=== PATIENT | female | born 1955 ===

== ENCOUNTER → 2018-02-26 20:56 | Outpatient (REF) | payer OTHER, SELFPAY ==
[2018-02-26 21:29] LABS: Hemoglobin A1C% w Est Avg Glu 5.7 % (4.0-6.0)
[2018-02-26 21:37] LABS: Erythrocyte Sedimentation Rate 11 MM/HR (0-20)
[2018-02-26 22:18] LABS: Thyroid Stimulating Hormone 1.37 uIU/mL (0.47-4.68)
[2018-02-26 22:33] LABS: Folate 15.3 ng/mL (2.76-20.0); Vitamin B12 567 pg/mL (239-931)
[2018-03-01 20:33] LABS: ANA Screen, IFA Negative (Negative)
[2018-03-01 20:58] LABS: RPR Screen Nonreactive (Nonreactive)
[2018-03-02 14:52] LABS: Lyme SCREEN w/ Reflex IgG IgM < 0.90 (< 0.90)
[2018-03-02 22:19] LABS: Albumin 4.1 g/dL (3.8-4.8); Alpha 1 Globulin 0.3 g/dL (0.2-0.3); Alpha 2 Globulin 0.7 g/dL (0.5-0.9); Beta 1 Globulin 0.4 g/dL (0.4-0.6); Protein, Total 6.8 g/dL (6.1-8.1)
== END ==
LOC: LAB 20:56
PROVIDERS: Visit Provider Naturopath
DX: F07.81 Postconcussional syndrome (principal); R41.844 Frontal lobe and executive function deficit; R41.840 Attention and concentration deficit
CPT/HCPCS: 36415; 82607; 82746; 83036; 83090; 83519; 84155; 84165; 84443; 85651; 86038; 86255; 86592; 86618

== ENCOUNTER → 2018-03-02 21:22 | Outpatient (REF) | payer OTHER, SELFPAY ==
[2018-03-06 17:35] LABS: Albumin 100 %; Protein, Total, 24 hr urine 116 mg/24 h (<150); Protein/ Creatinine Ratio 94 mg/g creat (<115); Total Volume 2900 mL
== END ==
LOC: LAB 21:22
PROVIDERS: Visit Provider Psychiatry & Neurology Neurology with Special Qualifications in Child Neurology
DX: G62.9 Polyneuropathy, unspecified (principal); R53.1 Weakness
CPT/HCPCS: 84156; 84166

== ENCOUNTER → 2018-03-03 21:17 | Outpatient (REF) | payer OTHER, SELFPAY ==
[2018-03-03 21:58] LABS: C-Reactive Protein Quant < 0.5 mg/dL (<1.0)
[2018-03-03 22:13] LABS: Cortisol Random 10.4 ug/dL
[2018-03-06 13:56] LABS: Dehydroepiandrosterone Sulfate 109 mcg/dL (12-133)
[2018-03-06 14:50] LABS: Progesterone < 0.5 ng/mL
[2018-03-06 15:47] LABS: Estradiol 17 pg/mL
[2018-03-06 18:38] LABS: Adrenocorticotropic Hormone 23 pg/mL (6-50)
[2018-03-08 09:32] LABS: Z- Score (Female) 0.2 SD (-2.0 - +2.0)
[2018-03-08 19:40] LABS: Pregnenolone 73 ng/dL (22-237)
[2018-03-09 15:56] LABS: Testosterone Free 1.6 pg/mL (0.1-6.4); Testosterone Total 16 ng/dL (2-45)
[2018-03-11 12:37] LABS: IGF Binding Protein -3 4.6 mg/L (3.0-6.6)
== END ==
LOC: LAB 21:17
PROVIDERS: Visit Provider Naturopath
DX: F07.81 Postconcussional syndrome (principal); R41.844 Frontal lobe and executive function deficit; R41.840 Attention and concentration deficit
CPT/HCPCS: 82024; 82088; 82533; 82627; 82670; 83001; 83002; 83519; 84144; 84305; 84402; 84403; 84588; 86140